=== PATIENT | female | born 1950 | race Caucasian/White ===

== ENCOUNTER 2017-07-03 11:47 | Emergency (ER) | payer MEDICARE ==
[~2017-07-03] VITALS: Ht 172.7 cm; Wt 90.9 kg
[~2017-07-03 11:47] MED LIST: ATOR20TA86 PO; INSLAN SQ; KDUR10 PO; LAMO100 PO; LISI-661 PO; METF500T4 PO
[2017-07-03 12:13] LABS: GLUCOSE,POINT OF CARE 144 MG/DL (70-110)
[2017-07-03] MEDS ORDERED: AMLO-511 PO (12:15)
[2017-07-03] MEDS ORDERED: CLOP75 PO (12:15)
[2017-07-03] MEDS ORDERED: LITH300C3 PO (12:15)
[2017-07-03] MEDS ORDERED: SERT100T12 PO (12:15)
[2017-07-03] MEDS ORDERED: LITH300T PO (12:15)
[2017-07-03] MEDS ORDERED: MIRT15 PO (12:15)
[2017-07-03] MEDS ORDERED: ASPI-989 PO (12:15)
[2017-07-03] MEDS ORDERED: FENO160 PO (12:15)
[2017-07-03 12:26] LABS: CALCIUM, TOTAL 9.6 mg/dL (8.8-10.5); CREATININE 1.68 mg/dL (0.60-1.30)
[2017-07-03 12:32] LABS: ALBUMIN 3.9 g/dL (3.4-5.0); BILIRUBIN,TOTAL 0.3 mg/dL (0.1-1.0); TOTAL PROTEIN, SERUM 6.6 g/dL (6.4-8.2)
[2017-07-03 12:48] LABS: BASOPHILS # (AUTO) 0.02 K/uL (0.00-0.20); BASOPHILS % (AUTO) 0.3 % (0.0-2.0); EOSINOPHILS % (AUTO) 4.58 % (1.0-6.0); HEMATOCRIT 38.6 % (36-46); HEMOGLOBIN 12.7 g/dL (12.0-16.0); LYMPHOCYTES # (AUTO) 1.3 K/uL (1.0-4.8); LYMPHOCYTES % (AUTO) 14.9 % (22.0-44.0); MEAN CORPUSCULAR HEMOGLOBIN 31.4 pg (26.0-34.0); MEAN CORPUSCULAR HGB CONC 32.9 G/dL (31.0-37.0); MEAN CORPUSCULAR VOLUME 95 fL (80-100); MONOCYTES # (AUTO) 0.5 K/uL (0.1-1.0); MONOCYTES % (AUTO) 5.9 % (2.0-9.0); NEUTROPHILS # (AUTO) 6.5 K/uL (1.8-7.7); NEUTROPHILS % (AUTO) 74.4 % (40.0-70.0); PLATELET COUNT (AUTO) 246 K/uL (150-450); RED BLOOD CELL COUNT(AUTO) 4.06 MIL/uL (4.00-5.20); RED CELL DISTRIBUTION WIDTH 13.5 % (11.5-14.5); WHITE BLOOD COUNT (AUTO) 8.7 K/uL (4.5-11.0)
[2017-07-03] MEDS ORDERED: FENO145T20 PO (13:53)
[2017-07-03] MEDS ORDERED: LISI-662 PO (13:53)
[2017-07-03] MEDS ORDERED: SODIUM CHLORIDE 0.9% 1,000 ML IV ONE (14:00)
[2017-07-03 14:01] LABS: GLUCOSE, URINE (UA) NEGATIVE (NEGATIVE); KETONES,URINE TRACE mg/dL (NEGATIVE); LEUKOCYTE ESTERASE ,URINE LARGE (NEGATIVE); OCCULT BLOOD,URINE LARGE (NEGATIVE); PROTEIN,URINE POS 1+ (NEGATIVE)
[2017-07-03 14:10] LABS: ADD UA MICROSCOPIC YES; APPEARANCE,URINE CLOUDY (CLEAR)
[2017-07-03 14:12] LABS: WBC,URINE >100 /HPF (0-5)
[2017-07-03 14:14] LABS: SQUAMOUS EPITHELIAL CELL,UR Few /LPF (None Seen)
[2017-07-03] MEDS ORDERED: CefTRIAXone 1 GM/DEXTROSE 50 ML IV ONE (15:00)
[2017-07-03] MEDS ORDERED: LEVOFLOXACIN 500 MG/D5% WATER 100 ML IV ONE (15:00)
[2017-07-03 16:14] VITALS: BP 122/73
== END 2017-07-03 16:33 | disposition home or self-care (01) ==
LOC: EMS 11:54
DX: N39.0 Urinary tract infection, site not specified (principal); E11.9 Type 2 diabetes mellitus without complications; E78.00 Pure hypercholesterolemia, unspecified; I10 Essential (primary) hypertension; Z86.73 Personal history of transient ischemic attack (TIA), and cerebral infarction without residual deficits; Z79.4 Long term (current) use of insulin; Z79.82 Long term (current) use of aspirin
CPT/HCPCS: 36415; 71010; 80053; 81001; 82962; 83880; 84484; 85025; 87086; 87106; 93005; 96361; 96365; 96367; 99285; J0696; J1956; J7030